=== PATIENT | female | born 1980 | race Caucasian/White ===

== ENCOUNTER 2018-01-11 12:03 | Emergency (ER) | payer MEDICAID ==
[~2018-01-11] VITALS: Ht 162.6 cm; Wt 78.1 kg
[~2018-01-11 12:03] MED LIST: COLACE100 MG PO; FER300 PO; FOLIC ACID1 MG PO; LAC PO; NITROFURANTOIN100 MG PO; NORCO1 TA2 PO; PRENATAL VITAMI1 TA4 PO; TYLENOL EXTRA500 M2 PO; VITC PO
[2018-01-11 12:09] VITALS: Ht 162.6 cm; Wt 78.1 kg
[2018-01-11 14:09] VITALS: BP 115/71
== END 2018-01-11 14:09 | disposition home or self-care (01) ==
LOC: ED 12:03
DX: J11.1 Influenza due to unidentified influenza virus with other respiratory manifestations (principal); N39.0 Urinary tract infection, site not specified

== ENCOUNTER 2018-04-14 12:18 | Emergency (ER) | payer MEDICAID ==
[~2018-04-14] VITALS: Ht 165.1 cm; Wt 80.7 kg
[2018-04-14 12:19] VITALS: Ht 165.1 cm; Wt 80.7 kg
[2018-04-14 12:50] LABS: BASOPHIL % 0.7 % (0-2); PLATELET COUNT 330 x10^3mcL (130-400)
[2018-04-14 12:53] LABS: CALCIUM 8.8 mg/dL (8.5-10.1); CARBON DIOXIDE 34.6 mmol/L (21-32); CHLORIDE SERUM 102 mmol/L (98-107); CREATININE SERUM 0.7 mg/dL (0.6-1.0); GFR1 > 60 mL/min; GLUCOSE SERUM 89 mg/dL (74-106); POTASSIUM SERUM 4.2 mmol/L (3.5-5.1); SODIUM SERUM 139 mmol/L (136-145)
[2018-04-14 12:57] LABS: ALBUMIN 3.4 g/dL (3.4-5.0); ALKALINE PHOSPHATASE 89 U/L (46-116); ALT/SGPT 16 U/L (14-59); AST/SGOT 17 U/L (15-37); BILIRUBIN TOTAL 0.23 mg/dL (0.20-1.00); LIPASE 262 IU/L (73-393); TOTAL PROTEIN, SERUM 7.8 g/dL (6.4-8.2)
[2018-04-14 13:10] LABS: RED CELL DISTRIBUTION WIDTH 19.1 % (11.5-14.5)
[2018-04-14 14:41] VITALS: BP 11/55
== END 2018-04-14 12:58 | disposition home or self-care (01) ==
LOC: ED 12:18
PROVIDERS: Emergency Medicine
DX: M25.511 Pain in right shoulder (principal); K21.9 Gastro-esophageal reflux disease without esophagitis; M25.522 Pain in left elbow
CPT/HCPCS: J1885

== ENCOUNTER 2018-04-15 18:23 | Emergency (ER) | payer MEDICAID ==
[~2018-04-15] VITALS: Ht 157.5 cm; Wt 80.3 kg
[2018-04-15 18:32] VITALS: Ht 157.5 cm; Wt 80.3 kg
[2018-04-15 21:01] LABS: BASOPHIL % 0.4 % (0-2); PLATELET COUNT 284 x10^3mcL (130-400)
[2018-04-15 21:10] LABS: CALCIUM 8.6 mg/dL (8.5-10.1); CARBON DIOXIDE 29.8 mmol/L (21-32); CHLORIDE SERUM 104 mmol/L (98-107); CREATININE SERUM 0.9 mg/dL (0.6-1.0); GFR1 > 60 mL/min; GLUCOSE SERUM 109 mg/dL (74-106); POTASSIUM SERUM 4.5 mmol/L (3.5-5.1); SODIUM SERUM 141 mmol/L (136-145)
[2018-04-15 21:15] LABS: ALBUMIN 3.4 g/dL (3.4-5.0); ALKALINE PHOSPHATASE 79 U/L (46-116); ALT/SGPT 16 U/L (14-59); AST/SGOT 14 U/L (15-37); BILIRUBIN TOTAL 0.31 mg/dL (0.20-1.00); LIPASE 118 IU/L (73-393); TOTAL PROTEIN, SERUM 7.8 g/dL (6.4-8.2)
[2018-04-15 21:16] LABS: RED CELL DISTRIBUTION WIDTH 19.3 % (11.5-14.5)
[2018-04-16 00:34] VITALS: BP 129/71
== END 2018-04-16 00:34 | disposition home or self-care (01) ==
LOC: ED 18:23
PROVIDERS: Emergency Medicine
DX: R10.30 Lower abdominal pain, unspecified (principal); R11.2 Nausea with vomiting, unspecified
CPT/HCPCS: J1885; J2270; J2405; J7030

== ENCOUNTER 2018-04-16 20:52 | Emergency (ER) | payer MEDICAID | END 2018-04-16 23:47 | disposition home or self-care (01) | LOC: ED 20:52 ==

== ENCOUNTER 2019-02-01 07:49 | Emergency (ER) | payer MEDICAID ==
[~2019-02-01] VITALS: Ht 154.9 cm; Wt 78.3 kg
[2019-02-01 09:18] VITALS: BP 107/67
== END 2019-02-01 09:18 | disposition home or self-care (01) ==
LOC: ED 07:49
DX: M54.12 Radiculopathy, cervical region (principal); R51 Headache
CPT/HCPCS: J1885

== ENCOUNTER 2020-02-14 13:21 | Emergency (ER) | payer MEDICAID ==
[~2020-02-14] VITALS: Ht 157.5 cm; Wt 75.3 kg
[2020-02-14 13:26] VITALS: Ht 157.5 cm; Wt 75.3 kg
[2020-02-14 15:18] VITALS: BP 131/49
== END 2020-02-14 15:18 | disposition home or self-care (01) ==
LOC: ED 13:21
DX: M76.52 Patellar tendinitis, left knee (principal)
CPT/HCPCS: J1885